=== PATIENT | female | born 1970 | race Caucasian/White ===

== ENCOUNTER → 2023-12-10 11:48 | Outpatient (REF) | payer BC, SELFPAY ==
[2023-12-10 12:21] LABS: % Basophils 0.9 % (0-2); % Eosinophils 3.5 % (0-6); % Immature Granulocytes 0.6 % (0-0.5); % Lymphocytes 19.6 % (20.5-51.1); % Monocytes 13.1 % (1.7-9.3); % Neutrophils 62.3 % (42.2-75.2); Absolute Basophils 0.1 10^3/uL (0-0.2); Absolute Eosinophils 0.2 10^3/uL (0-0.7); Absolute Lymphocytes 1.4 10^3/uL (1.2-3.4); Absolute Monocytes 0.9 10^3/uL (0.1-0.6); Absolute Neutrophils 4.3 10^3/uL (1.4-6.5); Hematocrit 38.1 % (37.0-47.0); Hemoglobin 12.8 g/dL (12.0-16.0); Mean Corp Hgb Conc. 33.6 g/dL (33.0-37.0); Mean Corpuscular Hgb 31.4 pg (27.0-31.0); Mean Corpuscular Volume 93.4 fL (81.0-99.0); Mean Platelet Volume 10.7 fL (7.4-10.4); Nucleated Red Blood Cells % 0 %; Platelet Count 183 10^3/uL (130-400); Red Blood Cell Count 4.08 10^6/uL (4.20-5.40); Red Cell Dist. Width 14.3 % (11.5-14.5)
[2023-12-10 12:36] LABS: ALT (SGPT) 16 U/L (0-35); AST (SGOT) 24 U/L (14-36); Albumin 4.4 g/dl (3.5-5.0); Alkaline Phosphatase 74 U/L (38-126); Blood Urea Nitrogen 34 mg/dl (7-17); Calcium 9.5 mg/dl (8.4-10.2); Carbon Dioxide 22 mmol/L (22-30); Chloride 104 mmol/L (98-107); Glucose 122 mg/dl (70-99); Potassium 4.1 mmol/L (3.5-5.1); Sodium 139 mmol/L (135-145); Total Bilirubin 0.6 mg/dl (0.2-1.3); Total Protein 7.4 g/dl (6.3-8.2); eGFR > 60.00
[2023-12-10 13:21] LABS: Glycohemoglobin (HgbA1c) 7.2 % (4.0-5.6)
== END ==
LOC: RCS 11:48
PROVIDERS: ATTENDING PHYSICIAN Nurse Practitioner Family
DX: Z01.818 Encounter for other preprocedural examination (principal)
CPT/HCPCS: 36415; 80053; 83036; 85025; 93005

== ENCOUNTER → 2024-06-19 16:47 | Outpatient (REF) | payer BC, SELFPAY | LOC: WDC 16:47 | PROVIDERS: ATTENDING PHYSICIAN Internal Medicine Geriatric Medicine | DX: Z12.31 Encounter for screening mammogram for malignant neoplasm of breast (principal) | CPT/HCPCS: 77063; 77067 ==

== ENCOUNTER 2024-10-09 08:51 | Emergency (ER) | payer BC, SELFPAY ==
[2024-10-09 08:54] VITALS: BP 146/86
[2024-10-09 09:22] LABS: % Basophils 0.6 % (0-2); % Eosinophils 5.2 % (0-6); % Immature Granulocytes 0.4 % (0-0.5); % Lymphocytes 29.2 % (20.5-51.1); % Monocytes 18.4 % (1.7-9.3); % Neutrophils 46.2 % (42.2-75.2); Absolute Eosinophils 0.2 10^3/uL (0-0.7); Absolute Lymphocytes 1.4 10^3/uL (1.2-3.4); Absolute Monocytes 0.9 10^3/uL (0.1-0.6); Absolute Neutrophils 2.1 10^3/uL (1.4-6.5); Hemoglobin 14.2 g/dL (12.0-16.0); Mean Corpuscular Hgb 31.5 pg (27.0-31.0); Mean Corpuscular Volume 95.3 fL (81.0-99.0); Mean Platelet Volume 10.8 fL (7.4-10.4); Nucleated Red Blood Cells % 0 %; Platelet Count 165 10^3/uL (130-400); Red Blood Cell Count 4.51 10^6/uL (4.20-5.40); Red Cell Dist. Width 14.6 % (11.5-14.5); White Blood Cell Count 4.6 10^3/uL (4.8-10.8)
[2024-10-09 09:33] LABS: COVID-19 Antigen Negative (Negative)
[2024-10-09 09:35] LABS: ALT (SGPT) 14 U/L (0-35); AST (SGOT) 22 U/L (14-36); Albumin 4.3 g/dl (3.5-5.0); Alkaline Phosphatase 74 U/L (38-126); Blood Urea Nitrogen 14 mg/dl (7-17); Calcium 8.8 mg/dl (8.4-10.2); Carbon Dioxide 29 mmol/L (22-30); Chloride 107 mmol/L (98-107); Glucose 135 mg/dl (70-99); Potassium 4.4 mmol/L (3.5-5.1); Sodium 143 mmol/L (135-145); Total Bilirubin 0.5 mg/dl (0.2-1.3); Total Protein 7.9 g/dl (6.3-8.2); eGFR > 60.00
[2024-10-09 11:52] VITALS: BMI 32.8
[2024-10-09 11:56] VITALS: BP 127/92
[2024-10-09 12:00] VITALS: BP 123/104
--- NOTE | 2024-10-09 12:08 | ED.GENMED ---
History of Present Illness
General
Chief Complaint: Cold/Flu/URI Symptoms
Time Seen by Provider: 10/09/24 11:34
History of Present Illness
History of Present Illness:
54-year-old female with history of kidney transplant presents the emergency department for evaluation of continued left ear pain as well as dry coughing and nasal congestion. She was seen last week by her primary care physician and put on
amoxicillin but feels she is no better. Denies any fevers or chills. Denies dyspnea or chest pain.
Review of Systems
Review of Systems
Allergies reviewed?: Yes
All Other Systems: ROS reviewed and negative except as documented in HPI and ROS
Phy Exam
Physical Exam
Physical Exam:
GEN: Well appearing, NAD, WDWN
HEENT: Oral mucosa moist, no scleral icterus, left TM appears to be bulging with purulent middle ear effusion
Cardiac: Regular rate
Lung: No respiratory distress, no tachypnea, lungs clear to auscultation bilaterally
MSK: No gross deformity or injuries
Skin: Good color, no pallor or jaundice, no rashes
Neuro: AO x3, moves all extremities freely
Psych: Calm, cooperative
Course
Orders/Labs/Results
Orders:
Orders
10/09/24 09:00
CR Chest - 2 Views Urgent
Comment:
Reason For Exam: suspected infection
10/09/24 09:10
COVID-19 Antigen Urgent
Source: Nasal Swab
Complete Blood Count/With Diff Urgent
Comprehensive Metabolic Panel Urgent
Influenza A+B Rapid Molecular Urgent
ABILIO Source: Nasal Swab
Specimen Description:
Abnormal Lab Results
10/09/24
09:10
WBC 4.6 L 10^3/uL
(4.8-10.8)
MCH 31.5 H pg
(27.0-31.0)
RDW 14.6 H %
(11.5-14.5)
MPV 10.8 H fL
(7.4-10.4)
Absolute Monos (auto) 0.9 H 10^3/uL
(0.1-0.6)
Monocytes % 18.4 H %
(1.7-9.3)
Glucose 135 H mg/dl
(70-99)
10/09/24 09:10
10/09/24 09:10
Vital Signs
Initial and Last Documented VS:
Initial Vital Signs
Temp Pulse Resp BP Pulse Ox
98.6 F 92 16 146/86 95
10/09/24 08:54 10/09/24 08:54 10/09/24 08:54 10/09/24 08:54 10/09/24 08:54
Last Documented Vital Signs
Temp Pulse Resp BP Pulse Ox
98.6 F 92 16 123/104 96
10/09/24 08:54 10/09/24 08:54 10/09/24 08:54 10/09/24 12:00 10/09/24 12:00
MDM/Problems Addressed
MDM/Problems Addressed:
No improvement to left otitis media with amoxicillin thus we will start cefdinir particular given her transplant history, will also treat with corticosteroids for the respiratory symptoms
*Critical Care Note
Total Time (30-74mins, 75-104mins- exclusive of procedures): Not Applicable
ED Attending Note
-
Portions of this chart may have been created with voice recognition software.� Occasional wrong word or��sound alike� substitutions may have occurred due to the inherent limitations of voice recognition software.
Discharge Plan
Departure
Patient Disposition: Home (Routine Discharge)
Date of Disposition: 10/09/24
Time of Disposition: 12:09
Patient with high blood pressure during this ER visit?: No
Discharge Problem:
Acute left otitis media, Bronchitis
Instructions: Acute Bronchitis, Adult (DC)
Prescriptions:
New
prednisone 20 mg tablet
40 mg PO DAILY Qty: 9 0RF
Rx Instructions:
40mg PO qd x 3d, then 20mg PO qd x 3d
cefdinir 300 mg capsule
300 mg PO Q12H 7 Days Qty: 14 0RF
No Action
prednisone 5 mg Tablet
5 mg PO DAILY
amlodipine 2.5 mg Tablet
2.5 mg PO DAILY
azathioprine 50 mg Tablet
25 mg PO DAILY
amoxicillin [Amoxil] 500 mg Tablet
500 mg PO Q8H
simvastatin 20 mg Tablet
20 mg PO DAILY
tacrolimus 1 mg Capsule
3 mg PO Q12H
dapagliflozin propanediol [Farxiga] 5 mg Tablet
5 mg PO DAILY
Neomycin-Polymyxin B Sulfates
4 drp otic (ear) TID
Referrals:
Jagdeep Peña MD [Family Provider] -
Activity Restrictions/Additional Instructions:
Stop the amoxicillin and start the cefdinir
You may hold your daily prednisone while taking the increased dose I have prescribed; once this is completed, return to your normal daily dosage
Interventions
Interventions:
*Risk Screen - Suicide Last Done: 10/09/24 08:54
*Neglect/Abuse Screening Last Done: 10/09/24 08:54
*ED- Fall Risk Assessment Last Done: 10/09/24 11:53
*ED COVID-19 Vaccine History Last Done: 10/09/24 11:53
*Nursing Disposition Last Done: 10/09/24 12:23
ED- Pulmonary Assessment Last Done: 10/09/24 12:12
Discharge Date and Time
Discharge Date/Time: 10/09/24 12:24
Print Language: [place]
== END 2024-10-09 12:24 | disposition home or self-care (01) ==
LOC: EMR 08:51
PROVIDERS: Emergency Medicine; EMERGENCY PHYSICIAN Student in an Organized Health Care Education/Training Program; FAMILY PHYSICIAN Internal Medicine Geriatric Medicine
DX: H66.92 Otitis media, unspecified, left ear (principal); J40 Bronchitis, not specified as acute or chronic; Z11.52 Encounter for screening for COVID-19
CPT/HCPCS: 99284; 71046; 80053; 85025; 87502; 87811